=== PATIENT | male | born 1955 | race Caucasian/White ===

== ENCOUNTER 2018-06-25 11:00 | Emergency (ER) | payer BC ==
--- OUTSIDE RECORDS SUMMARY | 2018-06-25 11:21 | XMS REPORT ---
:1955 External Reference #:[id number] Author Organization [facility] Address [address] [place] [address] [place] [address] Phone [phone] Care Team Providers Name Role Phone Tommie Khalil MD Primary Care Physician Unavailable Payers Type Date Identification Numbers Payment Provider Subscriber Commercial Effective: Policy Number: BS Facets Alma Neri 2016 [id number] PayID: [id number] [address] [address] [place] [address] Problems Description No Information Social History Type Date Description Comments Occupation Retired Occupation Marketing Recruiter ETOH Use Currently consumes alcohol Smoking Patient is a former smoker quit at age 23 Exercise Type/Frequency Exercises regularly Allergies, Adverse Reactions, Alerts Date Description Reaction Status Severity Comments 09/13/2011 NKDA active Medications Medication Date Status Form Strength Qnty SIG Indications Ordering Provider Enbrel Active Soln 50mg/ml 1units inject 50 mg Z79.899 Zsofia 013 Prefill under the Cordell, Syringe skin every BUSINESS REPORTER week as directed by your physician M45.0 Simvastatin Active Tablets 20mg 90tabs 1 po qd Unknown Advair HFA Active Aerosol 115-21m 1month 2 puff bid prn Unknown cg/Act Losartan Active Tablets 100mg 90tabs 1 by mouth every Unknown Potassium day Cheratussin ac 03/08/2016 - Hx Syrup 100-10m 118ml 10 ml po hc for R0 Zsofia 08/23/2016 g/5ML 7 days for cough 5 Cordell, BUSINESS REPORTER Enbrel 01/15/2013 - Hx Solution 50mg/ml 12units 1 subcutaneously Zsofia 01/15/2013 once weekly YENY Landa Enbrel PFS 09/13/2011 - Hx Solution 50mg/ml 12units 1 subcutaneously Zsofia 08/21/2013 once weekly YENY Landa Immunizations CPT Code Status Date Vaccine Reaction Lot # [id number] Given 08/29/2017 Influenza Virus Vaccine, [id number] Quadrivalent, Split, Preservative Free [id number] Given 08/23/2016 Pneumococcal Conjugate Vaccine 13 no reaction noted [id number] Valent For Intramuscular Use 38946 Given 10/14/2014 Flu Vaccine Split Virus [id number] Preservative Free For Indiv 3Yr Older Vital Signs Date Vital Result Comment 06/05/2018 Height 67 inches 5'7" Weight 201.50 lb Heart Rate 64 /min BP Systolic Sitting 142 mmHg BP Diastolic Sitting 78 mmHg Pain Level 0 O2 % BldC Oximetry 96 % BMI (Body Mass Index) 31.6 kg/m2 01/02/2018 Height 67 inches 5'7" Weight 208.00 lb Heart Rate 74 /min BP Systolic Sitting 143 mmHg BP Diastolic Sitting 74 mmHg Respiratory Rate 15 /min Pain Level 0 BMI (Body Mass Index) 32.6 kg/m2 08/29/2017 Height 67 inches 5'7" Weight 198.00 lb w/ shoes Heart Rate 60 /min reg BP Systolic Sitting 146 mmHg Rue, reg cuff BP Diastolic Sitting 84 mmHg Rue, reg cuff Respiratory Rate 16 /min Pain Level 0 BMI (Body Mass Index) 31.0 kg/m2 04/28/2017 Height 67 inches 5'7" Weight 205.00 lb Heart Rate 80 /min BP Systolic Sitting 120 mmHg BP Diastolic Sitting 70 mmHg Respiratory Rate 14 /min Pain Level 2 BMI (Body Mass Index) 32.1 kg/m2 12/23/2016 Height 67 inches 5'7" Weight 207.00 lb Heart Rate 74 /min BP Systolic Sitting 120 mmHg BP Diastolic Sitting 68 mmHg Pain Level 1 BMI (Body Mass Index) 32.4 kg/m2 08/23/2016 Height 67 inches 5'7" Weight 203.25 lb Heart Rate 76 /min BP Systolic Sitting 110 mmHg BP Diastolic Sitting 70 mmHg Respiratory Rate 14 /min Pain Level 2 BMI (Body Mass Index) 31.8 kg/m2 03/08/2016 Height 67 inches 5'7" Weight 202.00 lb Heart Rate 74 /min BP Systolic Sitting 148 mmHg BP Diastolic Sitting 80 mmHg Pain Level 1 BMI (Body Mass Index) 31.6 kg/m2 10/12/2015 Height 67 inches 5'7" Weight 199.50 lb Heart Rate 80 /min BP Systolic Sitting 160 mmHg BP Diastolic Sitting 80 mmHg Respiratory Rate 14 /min Body Temperature 98.2 F Pain Level 2 BMI (Body Mass Index) 31.2 kg/m2 04/21/2015 Height 67 inches 5'7" Weight 208.50 lb Heart Rate 64 /min BP Systolic Sitting 132 mmHg BP Diastolic Sitting 76 mmHg BMI (Body Mass Index) 32.7 kg/m2 01/20/2015 Height 67 inches 5'7" Weight 199.00 lb Heart Rate 70 /min BP Systolic Sitting 130 mmHg BP Diastolic Sitting 84 mmHg Pain Level 1 BMI (Body Mass Index) 31.2 kg/m2 10/14/2014 Height 67 inches 5'7" Weight 195.00 lb Heart Rate 76 /min BP Systolic Sitting 134 mmHg BP Diastolic Sitting 72 mmHg Pain Level 0 BMI (Body Mass Index) 30.5 kg/m2 06/24/2014 Height 67 inches 5'7" Weight 189.00 lb Heart Rate 61 /min BP Systolic Sitting 126 mmHg BP Diastolic Sitting 70 mmHg BMI (Body Mass Index) 29.6 kg/m2 03/25/2014 Height 67 inches 5'7" Weight 206.00 lb Heart Rate 66 /min BP Systolic Sitting 128 mmHg BP Diastolic Sitting 72 mmHg BMI (Body Mass Index) 32.3 kg/m2 12/17/2013 Height 67 inches 5'7" Weight 209.00 lb Heart Rate 76 /min BP Systolic Sitting 154 mmHg BP Diastolic Sitting 88 mmHg BMI (Body Mass Index) 32.7 kg/m2 08/16/2013 Height 67 inches 5'7" Weight 198.00 lb Heart Rate 63 /min BP Systolic Sitting 132 mmHg BP Diastolic Sitting 80 mmHg BMI (Body Mass Index) 31.0 kg/m2 04/16/2013 Height 67 inches 5'7" Weight 200.00 lb Heart Rate 74 /min BP Systolic Sitting 130 mmHg BP Diastolic Sitting 76 mmHg BMI (Body Mass Index) 31.3 kg/m2 01/15/2013 Height 67 inches 5'7" Weight 200.00 lb Heart Rate 77 /min BP Systolic Sitting 120 mmHg BP Diastolic Sitting 66 mmHg BMI (Body Mass Index) 31.3 kg/m2 04/06/2012 Height 67 inches 5'7" Weight 193.00 lb Heart Rate 77 /min BP Systolic Sitting 123 mmHg BP Diastolic Sitting 77 mmHg BMI (Body Mass Index) 30.2 kg/m2 09/13/2011 Weight 190.00 lb Heart Rate 80 /min BP Systolic 110 mmHg BP Diastolic 70 mmHg Results Test Date Test Result H/L Range Note CBC Auto Diff 06/01/2018 White Blood Count 7.9 10^3/uL 3.5-10.8 Red Blood Count 4.88 10^6/uL 4.00-5.40 Hemoglobin 14.6 g/dL 14.0-18.0 Hematocrit 42 % 42-52 Mean Corpuscular Volume 87 fL 80-94 Mean Corpuscular Hemoglobin 30 pg 27-31 Mean Corpuscular HGB Conc 35 g/dL 31-36 Red Cell Distribution Width 14 % 10.5-15 Platelet Count 219 10^3/uL 150-450 Mean Platelet Volume 7.4 um3 7.4-10.4 Abs Neutrophils 5.3 10^3/uL 1.5-7.7 Abs Lymphocytes 1.8 10^3/uL 1.0-4.8 Abs Monocytes 0.5 10^3/uL 0-0.8 Abs Eosinophils 0.2 10^3/uL 0-0.6 Abs Basophils 0 10^3/uL 0-0.2 Abs Nucleated RBC 0 10^3/uL Granulocyte % 67.1 % 38-83 Lymphocyte % 22.9 % Low 25-47 Monocyte % 6.8 % 0-7 Eosinophil % 2.6 % 0-6 Basophil % 0.6 % 0-2 Nucleated Red Blood Cells % 0 Comp Metabolic Panel 06/01/2018 Sodium 137 mmol/L 135-145 Potassium 4.7 mmol/L 3.5-5.0 Chloride 105 mmol/L 101-111 Co2 Carbon Dioxide 27 mmol/L 22-32 Anion Gap 5 mmol/L 2-11 Glucose 116 mg/dL High 70-100 Blood Urea Nitrogen 22 mg/dL 6-24 Creatinine 0.80 mg/dL 0.67-1.17 BUN/Creatinine Ratio 27.5 High 8-20 Calcium 9.3 mg/dL 8.6-10.3 Total Protein 6.7 g/dL 6.4-8.9 Albumin 4.2 g/dL 3.2-5.2 Globulin 2.5 g/dL 2-4 Albumin/Globulin Ratio 1.7 1-3 Total Bilirubin 0.50 mg/dL 0.2-1.0 Alkaline Phosphatase 77 U/L 34-104 Alt 29 U/L 7-52 Ast 26 U/L 13-39 Egfr Non- 97.3 >60 Egfr 117.8 >60 1 Laboratory test finding 06/01/2018 Erythrocyte Sed Rate 22 mm/Hr High 0- 20 Carrot Allergen IgE <0.35 kU/L 2 CBC Auto Diff 08/22/2017 White Blood Count 6.6 10^3/uL 3.5-10.8 Red Blood Count 5.13 10^6/uL 4.0-5.4 Hemoglobin 15.0 g/dL 14.0-18.0 Hematocrit 44 % 42-52 Mean Corpuscular Volume 87 fL 80-94 Mean Corpuscular Hemoglobin 29 pg 27-31 Mean Corpuscular HGB Conc 34 g/dL 31-36 Red Cell Distribution Width 14 % 10.5-15 Platelet Count 232 10^3/uL 150-450 Mean Platelet Volume 8 um3 7.4-10.4 Abs Neutrophils 4.1 10^3/uL 1.5-7.7 Abs Lymphocytes 1.9 10^3/uL 1.0-4.8 Abs Monocytes 0.4 10^3/uL 0-0.8 Abs Eosinophils 0.3 10^3/uL 0-0.6 Abs Basophils 0 10^3/uL 0-0.2 Abs Nucleated RBC 0.01 10^3/uL Granulocyte % 61.5 % 38-83 Lymphocyte % 27.9 % 25-47 Monocyte % 6.2 % 1-9 Eosinophil % 3.9 % 0-6 Basophil % 0.5 % 0-2 Nucleated Red Blood Cells % 0.2 Comp Metabolic Panel 08/22/2017 Sodium 136 mmol/L 133-145 Potassium 4.3 mmol/L 3.5-5.0 Chloride 104 mmol/L 101-111 Co2 Carbon Dioxide 25 mmol/L 22-32 Anion Gap 7 mmol/L 2-11 Glucose 122 mg/dL High 70-100 Blood Urea Nitrogen 19 mg/dL 6-24 Creatinine 0.83 mg/dL 0.67-1.17 BUN/Creatinine Ratio 22.9 High 8-20 Calcium 9.4 mg/dL 8.6-10.3 Total Protein 6.9 g/dL 6.4-8.9 Albumin 4.2 g/dL 3.2-5.2 Globulin 2.7 g/dL 2-4 Albumin/Globulin Ratio 1.6 1-3 Total Bilirubin 0.60 mg/dL 0.2-1.0 Alkaline Phosphatase 54 U/L 34-104 Alt 38 U/L 7-52 Ast 34 U/L 13-39 Egfr Non- 93.6 >60 Egfr 120.3 >60 3 Laboratory test finding 08/22/2017 C Reactive Protein < 1.00 mg/L < 5.00 4 Erythrocyte Sed Rate 12 mm/Hr 0-20 5 CBC Auto Diff 04/05/2017 White Blood Count 5.4 10^3/uL 3.5-10.8 Red Blood Count 5.48 10^6/uL High 4.0-5.4 Hemoglobin 15.7 g/dL 14.0-18.0 Hematocrit 47 % 42-52 Mean Corpuscular Volume 87 fL 80-94 Mean Corpuscular Hemoglobin 29 pg 27-31 Mean Corpuscular HGB Conc 33 g/dL 31-36 Red Cell Distribution Width 14 % 10.5-15 Platelet Count 210 10^3/uL 150-450 Mean Platelet Volume 8 um3 7.4-10.4 Abs Neutrophils 2.8 10^3/uL 1.5-7.7 Abs Lymphocytes 1.8 10^3/uL 1.0-4.8 Abs Monocytes 0.5 10^3/uL 0-0.8 Abs Eosinophils 0.2 10^3/uL 0-0.6 Abs Basophils 0 10^3/uL 0-0.2 Abs Nucleated RBC 0.01 10^3/uL Granulocyte % 52.8 % 38-83 Lymphocyte % 33.4 % 25-47 Monocyte % 9.9 % High 1-9 Eosinophil % 3.3 % 0-6 Basophil % 0.6 % 0-2 Nucleated Red Blood Cells % 0.1 Comp Metabolic Panel 04/05/2017 Sodium 134 mmol/L 133-145 Potassium 4.5 mmol/L 3.5-5.0 Chloride 104 mmol/L 101-111 Co2 Carbon Dioxide 24 mmol/L 22-32 Anion Gap 6 mmol/L 2-11 Glucose 138 mg/dL High 70-100 Blood Urea Nitrogen 18 mg/dL 6-24 Creatinine 0.82 mg/dL 0.67-1.17 BUN/Creatinine Ratio 22.0 High 8-20 Calcium 9.2 mg/dL 8.6-10.3 Total Protein 7.0 g/dL 6.4-8.9 Albumin 4.5 g/dL 3.2-5.2 Globulin 2.5 g/dL 2-4 Albumin/Globulin Ratio 1.8 1-3 Total Bilirubin 0.70 mg/dL 0.2-1.0 Alkaline Phosphatase 57 U/L 34-104 Alt 30 U/L 7-52 Ast 27 U/L 13-39 Egfr Non- 94.9 >60 Egfr 122.0 >60 6 Laboratory test finding 04/05/2017 Erythrocyte Sed Rate 9 mm/Hr 0-20 7 C Reactive Protein 1.09 mg/L < 5.00 8 CBC Auto Diff 08/11/2016 White Blood Count 6.5 10^3/uL 3.5-10.8 Red Blood Count 5.32 10^6/uL 4.0-5.4 Hemoglobin 15.7 g/dL 14.0-18.0 Hematocrit 46 % 42-52 Mean Corpuscular Volume 87 fL 80-94 Mean Corpuscular Hemoglobin 30 pg 27-31 Mean Corpuscular HGB Conc 34 g/dL 31-36 Red Cell Distribution Width 13 % 10.5-15 Platelet Count 208 10^3/uL 150-450 Mean Platelet Volume 8 um3 7.4-10.4 Abs Neutrophils 4.0 10^3/uL 1.5-7.7 Abs Lymphocytes 1.8 10^3/uL 1.0-4.8 Abs Monocytes 0.5 10^3/uL 0-0.8 Abs Eosinophils 0.2 10^3/uL 0-0.6 Abs Basophils 0 10^3/uL 0-0.2 Abs Nucleated RBC 0.01 10^3/uL Granulocyte % 61.2 % 38-83 Lymphocyte % 27.5 % 25-47 Monocyte % 7.6 % 1-9 Eosinophil % 3.1 % 0-6 Basophil % 0.6 % 0-2 Nucleated Red Blood Cells % 0.1 Comp Metabolic Panel 08/11/2016 Sodium 136 mmol/L 133-145 Potassium 4.4 mmol/L 3.5-5.0 Chloride 103 mmol/L 101-111 Co2 Carbon Dioxide 26 mmol/L 22-32 Anion Gap 7 mmol/L 2-11 Glucose 144 mg/dL High 70-100 Blood Urea Nitrogen 18 mg/dL 6-24 Creatinine 0.83 mg/dL 0.67-1.17 BUN/Creatinine Ratio 21.7 High 8-20 Calcium 9.2 mg/dL 8.6-10.3 Total Protein 7.1 g/dL 6.4-8.9 Albumin 4.6 g/dL 3.2-5.2 Globulin 2.5 g/dL 2-4 Albumin/Globulin Ratio 1.8 1-3 Total Bilirubin 0.90 mg/dL 0.2-1.0 Alkaline Phosphatase 58 U/L 34-104 Alt 32 U/L 7-52 Ast 25 U/L 13-39 Egfr Non- 93.9 >60 Egfr 120.7 >60 9 Laboratory test finding 08/11/2016 Erythrocyte Sed Rate 12 mm/Hr 0-20 10 C Reactive Protein < 1.00 mg/L < 5.00 11 Comp Metabolic Panel 03/04/2016 Sodium 136 mmol/L 133-145 Potassium 3.9 mmol/L 3.5-5.0 Chloride 102 mmol/L 101-111 Co2 Carbon Dioxide 26 mmol/L 22-32 Anion Gap 8 mmol/L 2-11 Glucose 195 mg/dL High 70-100 Blood Urea Nitrogen 18 mg/dL 6-24 Creatinine 0.82 mg/dL 0.67-1.17 BUN/Creatinine Ratio 22.0 High 8-20 Calcium 9.0 mg/dL 8.6-10.3 Total Protein 6.4 g/dL 6.4-8.9 Albumin 4.3 g/dL 3.2-5.2 Globulin 2.1 g/dL 2-4 Albumin/Globulin Ratio 2.0 1-3 Total Bilirubin 0.50 mg/dL 0.2-1.0 Alkaline Phosphatase 64 U/L 34-104 Alt 30 U/L 7-52 Ast 22 U/L 13-39 Egfr Non- 95.2 >60 Egfr 122.4 >60 12 Laboratory test finding 03/04/2016 C Reactive Protein 3.97 mg/L < 5.00 13 CBC Auto Diff 03/04/2016 White Blood Count 5.7 10^3/uL 3.5-10.8 Red Blood Count 5.07 10^6/uL 4.0-5.4 Hemoglobin 15.0 g/dL 14.0-18.0 Hematocrit 44 % 42-52 Mean Corpuscular Volume 88 fL 80-94 Mean Corpuscular Hemoglobin 30 pg 27-31 Mean Corpuscular HGB Conc 34 g/dL 31-36 Red Cell Distribution Width 14 % 10.5-15 Platelet Count 212 10^3/uL 150-450 Mean Platelet Volume 8 um3 7.4-10.4 Abs Neutrophils 3.6 10^3/uL 1.5-7.7 Abs Lymphocytes 1.5 10^3/uL 1.0-4.8 Abs Monocytes 0.4 10^3/uL 0-0.8 Abs Eosinophils 0.1 10^3/uL 0-0.6 Abs Basophils 0.1 10^3/uL 0-0.2 Abs Nucleated RBC 0 10^3/uL Granulocyte % 62.7 % 38-83 Lymphocyte % 25.9 % 25-47 Monocyte % 7.2 % 1-9 Eosinophil % 2.2 % 0-6 Basophil % 2.0 % 0-2 Nucleated Red Blood Cells % 0.1 Laboratory test finding 03/04/2016 Erythrocyte Sed Rate 21 mm/Hr High 0- 20 Comp Metabolic Panel 04/16/2015 Sodium 136 mmol/L 133-145 Potassium 4.1 mmol/L 3.5-5.0 Chloride 103 mmol/L 101-111 Co2 Carbon Dioxide 26 mmol/L 22-32 Anion Gap 7 mmol/L 2-11 Glucose 140 mg/dL High 70-100 Blood Urea Nitrogen 16 mg/dL 6-24 Creatinine 0.80 mg/dL 0.67-1.17 BUN/Creatinine Ratio 20.0 8-20 Calcium 9.2 mg/dL 8.6-10.3 Total Protein 6.9 g/dL 6.4-8.9 Albumin 4.4 g/dL 3.2-5.2 Globulin 2.5 g/dL 2-4 Albumin/Globulin Ratio 1.8 1-3 Total Bilirubin 1.20 mg/dL High 0.2-1.0 Alkaline Phosphatase 64 U/L 34-104 Alt 28 U/L 7-52 Ast 30 U/L 13-39 Egfr Non- 98.3 >60 Egfr 126.4 >60 14 Laboratory test finding 04/16/2015 C Reactive Protein 4.60 mg/L < 5.00 15 CBC Auto Diff 04/16/2015 White Blood Count 7.7 10^3/uL 4.8-10.8 Red Blood Count 5.12 10^6/uL 4.0-5.4 Hemoglobin 15.1 g/dL 14.0-18.0 Hematocrit 45 % 42-52 Mean Corpuscular Volume 88 fL 80-94 Mean Corpuscular Hemoglobin 30 pg 27-31 Mean Corpuscular HGB Conc 34 g/dL 31-36 Red Cell Distribution Width 14 % 10.5-15 Platelet Count 238 10^3/uL 150-450 Mean Platelet Volume 8 um3 7.4-10.4 Abs Neutrophils 5.3 10^3/uL 1.5-7.7 Abs Lymphocytes 1.5 10^3/uL 1.0-4.8 Abs Monocytes 0.6 10^3/uL 0-0.8 Abs Eosinophils 0.3 10^3/uL 0-0.6 Abs Basophils 0 10^3/uL 0-0.2 Abs Nucleated RBC 0 10^3/uL Granulocyte % 69.2 % 38-83 Lymphocyte % 19.3 % Low 25-47 Monocyte % 7.6 % 1-9 Eosinophil % 3.4 % 0-6 Basophil % 0.5 % 0-2 Nucleated Red Blood Cells % 0 Laboratory test finding 04/16/2015 Erythrocyte Sed Rate 24 mm/Hr High 0- 20 Comp Metabolic Panel 10/08/2014 Sodium 137 mmol/L 133-145 Potassium 4.2 mmol/L 3.5-5.0 16 Chloride 105 mmol/L 101-111 Co2 Carbon Dioxide 25 mmol/L 22-32 Anion Gap 7 mmol/L 2-11 Glucose 134 mg/dL High 70-100 Blood Urea Nitrogen 22 mg/dL 6-24 Creatinine 0.81 mg/dL 0.67-1.17 BUN/Creatinine Ratio 27.2 High 8-20 Calcium 9.1 mg/dL 8.6-10.3 Total Protein 6.7 g/dL 6.4-8.9 Albumin 4.5 g/dL 3.2-5.2 Globulin 2.2 g/dL 2-4 Albumin/Globulin Ratio 2.0 1-3 Total Bilirubin 0.60 mg/dL 0.2-1.0 Alkaline Phosphatase 60 U/L 34-104 Alt 35 U/L 7-52 Ast 32 U/L 13-39 Egfr Non- 97.2 >60 Egfr 125.0 >60 17 Laboratory test finding 10/08/2014 C Reactive Protein 1.81 mg/L < 5.00 18 CBC Auto Diff 10/08/2014 White Blood Count 5.9 10^3/uL 4.8-10.8 Red Blood Count 5.18 10^6/uL 4.0-5.4 Hemoglobin 15.6 g/dL 14.0-18.0 Hematocrit 46 % 42-52 Mean Corpuscular Volume 89 fL 80-94 Mean Corpuscular Hemoglobin 30 pg 27-31 Mean Corpuscular HGB Conc 34 g/dL 31-36 Red Cell Distribution Width 14 % 10.5-15 Platelet Count 205 10^3/uL 150-450 Mean Platelet Volume 8 um3 7.4-10.4 Abs Neutrophils 3.3 10^3/uL 1.5-7.7 Abs Lymphocytes 1.8 10^3/uL 1.0-4.8 Abs Monocytes 0.5 10^3/uL 0-0.8 Abs Eosinophils 0.2 10^3/uL 0-0.6 Abs Basophils 0 10^3/uL 0-0.2 Abs Nucleated RBC 0.01 10^3/uL Granulocyte % 56.5 % 38-83 Lymphocyte % 30.4 % 25-47 Monocyte % 9.0 % 1-9 Eosinophil % 3.5 % 0-6 Basophil % 0.6 % 0-2 Nucleated Red Blood Cells % 0.1 Laboratory test finding 10/08/2014 Erythrocyte Sed Rate 16 mm/Hr 0-20 CBC Auto Diff 06/19/2014 White Blood Count 6.5 10^3/uL 4.8-10.8 Red Blood Count 4.86 10^6/uL 4.0-5.4 Hemoglobin 14.7 g/dL 14.0-18.0 Hematocrit 43 % 42-52 Mean Corpuscular Volume 88 fL 80-94 Mean Corpuscular Hemoglobin 30 pg 27-31 Mean Corpuscular HGB Conc 34 g/dL 31-36 Red Cell Distribution Width 14 % 10.5-15 Platelet Count 198 10^3/uL 150-450 Mean Platelet Volume 8 um3 7.4-10.4 Abs Neutrophils 4.2 10^3/uL 1.5-7.7 Abs Lymphocytes 1.7 10^3/uL 1.0-4.8 Abs Monocytes 0.4 10^3/uL 0-0.8 Abs Eosinophils 0.2 10^3/uL 0-0.6 Abs Basophils 0 10^3/uL 0-0.2 Abs Nucleated RBC 0 10^3/uL Granulocyte % 64.4 % 38-83 Lymphocyte % 25.3 % 25-47 Monocyte % 6.8 % 1-9 Eosinophil % 3.1 % 0-6 Basophil % 0.4 % 0-2 Nucleated Red Blood Cells % 0 Comp Metabolic Panel 06/19/2014 Sodium 136 mmol/L 133-145 Potassium 4.3 mmol/L 3.7-5.6 Chloride 103 mmol/L 101-111 Co2 Carbon Dioxide 29 mmol/L 22-32 Anion Gap 4 mmol/L 2-11 Glucose 154 mg/dL High 70-100 Blood Urea Nitrogen 18 mg/dL 6-24 Creatinine 0.78 mg/dL 0.67-1.17 BUN/Creatinine Ratio 23.1 High 8-20 Calcium 9.0 mg/dL 8.6-10.3 Total Protein 6.5 g/dL 6.4-8.9 Albumin 4.3 g/dL 3.2-5.2 Globulin 2.2 g/dL 2-4 Albumin/Globulin Ratio 2.0 1-3 Total Bilirubin 0.80 mg/dL 0.2-1.0 Alkaline Phosphatase 57 U/L 34-104 Alt 24 U/L 7-52 Ast 24 U/L 13-39 Egfr Non- 101.5 >60 Egfr 130.6 >60 19 Laboratory test finding 06/19/2014 Erythrocyte Sed Rate 12 mm/Hr 0-20 C Reactive Protein < 0.10 mg/L < 5.00 20 CMP Panel 02/21/2014 Sodium 137 mmol/L 133-145 Potassium 4.2 mmol/L 3.7-5.6 Chloride 104 mmol/L 101-111 Co2 Carbon Dioxide 26 mmol/L 22-32 Anion Gap 7 mmol/L 2-11 Glucose 129 mg/dL High 70-100 Blood Urea Nitrogen 19 mg/dL 6-24 Creatinine 0.78 mg/dL 0.67-1.17 BUN/Creatinine Ratio 24.4 High 8-20 Calcium 9.0 mg/dL 8.6-10.3 Total Protein 6.9 g/dL 6.4-8.9 Albumin 4.6 g/dL 3.2-5.2 Globulin 2.3 g/dL 2-4 Albumin/Globulin Ratio 2.0 1-3 Total Bilirubin 1.00 mg/dL 0.2-1.0 Alkaline Phosphatase 51 U/L 34-104 Alt 44 U/L 7-52 Ast 31 U/L 13-39 Egfr Non- 101.5 >60 Egfr 130.6 >60 21 Laboratory test finding 02/21/2014 C Reactive Protein 1.24 mg/L < 5.00 22 CBC W/Auto Diff 02/21/2014 White Blood Count 6.2 10^3/uL 4.8-10.8 Red Blood Count 5.34 10^6/uL 4.0-5.4 Hemoglobin 16.2 g/dL 14.0-18.0 Hematocrit 46 % 42-52 Mean Corpuscular Volume 87 fL 80-94 Mean Corpuscular Hemoglobin 30 pg 27-31 Mean Corpuscular HGB Conc 35 g/dL 31-36 Red Cell Distribution Width 14 % 10.5-15 Platelet Count 215 10^3/uL 150-450 Mean Platelet Volume 8 um3 7.4-10.4 Abs Neutrophils 3.4 10^3/uL 1.5-7.7 Abs Lymphocytes 2.0 10^3/uL 1.0-4.8 Abs Monocytes 0.4 10^3/uL 0-0.8 Abs Eosinophils 0.3 10^3/uL 0-0.6 Abs Basophils 0 10^3/uL 0-0.2 Abs Nucleated RBC 0 10^3/uL Granulocyte % 54.7 % 38-83 Lymphocyte % 33.1 % 25-47 Monocyte % 7.2 % 1-9 Eosinophil % 4.3 % 0-6 Basophil % 0.7 % 0-2 Nucleated Red Blood Cells % 0 Laboratory test finding 02/21/2014 Erythrocyte Sed Rate 11 mm/Hr 0-20 Comp Metabolic Panel 12/13/2013 Sodium 136 mmol/L 133-145 Potassium 4.2 mmol/L 3.5-5.0 Chloride 106 mmol/L 101-111 Co2 Carbon Dioxide 23.0 mmol/L 22-32 Anion Gap 7.0 mmol/L 2-11 Glucose 115 mg/dL High 70-100 Blood Urea Nitrogen 17 mg/dL 6-24 Creatinine 0.90 mg/dL 0.50-1.40 BUN/Creatinine Ratio 18.9 8-20 Calcium 9.2 mg/dL 8.1-9.9 Total Protein 6.6 g/dL 6.2-8.1 Albumin 4.3 g/dL 3.6-5.4 Globulin 2.3 g/dL 2-4 Albumin/Globulin Ratio 1.9 1-3 Total Bilirubin 0.7 mg/dL 0.4-1.5 Alkaline Phosphatase 50 U/L 30-110 Alt 34 U/L 14-54 Ast 38 U/L 12-42 Egfr Non- 86.4 >60 Egfr 111.1 >60 23 Laboratory test finding 12/13/2013 C Reactive Protein < 0.5 mg/dL Less than 0.5 CBC Auto Diff 12/13/2013 White Blood Count 6.7 10^3/uL 4.8-10.8 Red Blood Count 5.16 10^6/uL 4.0-5.4 Hemoglobin 15.8 g/dL 14.0-18.0 Hematocrit 44 % 42-52 Mean Corpuscular Volume 86 fL 80-94 Mean Corpuscular Hemoglobin 31 pg 27-31 Mean Corpuscular HGB Conc 36 g/dL 31-36 Red Cell Distribution Width 13 % 10.5-15 Platelet Count 224 10^3/uL 150-450 Mean Platelet Volume 8 um3 7.4-10.4 Abs Neutrophils 3.9 10^3/uL 1.5-7.7 Abs Lymphocytes 1.9 10^3/uL 1.0-4.8 Abs Monocytes 0.5 10^3/uL 0-0.8 Abs Eosinophils 0.3 10^3/uL 0-0.6 Abs Basophils 0 10^3/uL 0-0.2 Abs Nucleated RBC 0 10^3/uL Granulocyte % 58.0 % 38-83 Lymphocyte % 29.0 % 25-47 Monocyte % 7.9 % 1-9 Eosinophil % 4.5 % 0-6 Basophil % 0.6 % 0-2 Nucleated Red Blood Cells % 0.1 Laboratory test finding 12/13/2013 Erythrocyte Sed Rate 14 mm/Hr 0-20 Comp Metabolic Panel 08/14/2013 Sodium 139 mmol/L 133-145 Potassium 4.3 mmol/L 3.5-5.0 Chloride 108 mmol/L 101-111 Co2 Carbon Dioxide 26.0 mmol/L 22-32 Anion Gap 5.0 mmol/L 2-11 Glucose 137 mg/dL High 70-100 Blood Urea Nitrogen 19 mg/dL 6-24 Creatinine 0.80 mg/dL 0.50-1.40 BUN/Creatinine Ratio 23.8 High 8-20 Calcium 9.2 mg/dL 8.1-9.9 Total Protein 6.7 g/dL 6.2-8.1 Albumin 3.9 g/dL 3.6-5.4 Globulin 2.8 g/dL 2-4 Albumin/Globulin Ratio 1.4 1-3 Total Bilirubin 0.5 mg/dL 0.4-1.5 Alkaline Phosphatase 54 U/L 30-110 Alt 29 U/L 14-54 Ast 26 U/L 12-42 Egfr Non- 98.9 >60 Egfr 127.2 >60 24 Laboratory test finding 08/14/2013 Erythrocyte Sed Rate 15 mm/Hr 0-20 C Reactive Protein < 0.5 mg/dL Less than 0.5 CBC Auto Diff 08/14/2013 White Blood Count 6.5 10^3/uL 4.8-10.8 Red Blood Count 4.96 10^6/uL 4.0-5.4 Hemoglobin 14.3 g/dL 14.0-18.0 Hematocrit 44 % 42-52 Mean Corpuscular Volume 88 fL 80-94 Mean Corpuscular Hemoglobin 29 pg 27-31 Mean Corpuscular HGB Conc 33 g/dL 31-36 Red Cell Distribution Width 14 % 10.5-15 Platelet Count 199 10^3/uL 150-450 Mean Platelet Volume 8 um3 7.4-10.4 Abs Neutrophils 3.9 10^3/uL 1.5-7.7 Abs Lymphocytes 1.7 10^3/uL 1.0-4.8 Abs Monocytes 0.6 10^3/uL 0-0.8 Abs Eosinophils 0.3 10^3/uL 0-0.6 Abs Basophils 0 10^3/uL 0-0.2 Abs Nucleated RBC 0.01 10^3/uL Granulocyte % 59.9 % 38-83 Lymphocyte % 26.4 % 25-47 Monocyte % 8.8 % 1-9 Eosinophil % 4.3 % 0-6 Basophil % 0.6 % 0-2 Nucleated Red Blood Cells % 0.1 Comp Metabolic Panel 04/12/2013 Sodium 138 mmol/L 133-145 Potassium 4.5 mmol/L 3.5-5.0 Chloride 107 mmol/L 101-111 Co2 Carbon Dioxide 25.0 mmol/L 22-32 Anion Gap 6.0 mmol/L 2-11 Glucose 160 mg/dL High 70-100 Blood Urea Nitrogen 15 mg/dL 6-24 Creatinine 0.80 mg/dL 0.50-1.40 BUN/Creatinine Ratio 18.8 8-20 Calcium 9.0 mg/dL 8.1-9.9 Total Protein 6.4 g/dL 6.2-8.1 Albumin 4.2 g/dL 3.6-5.4 Globulin 2.2 g/dL 2-4 Albumin/Globulin Ratio 1.9 1-3 Total Bilirubin 0.6 mg/dL 0.4-1.5 Alkaline Phosphatase 53 U/L 30-110 Alt 41 U/L 14-54 Ast 25 U/L 12-42 Egfr Non- 98.9 >60 Egfr 127.2 >60 25 Laboratory test 04/12/2013 C Reactive Protein 0.6 mg/dL High Less than 0.5 finding CBC Auto Diff 04/12/2013 White Blood Count 9.3 10^3/uL 4.8-10.8 Red Blood Count 5.04 10^6/uL 4.0-5.4 Hemoglobin 14.8 g/dL 14.0-18.0 Hematocrit 44 % 42-52 Mean Corpuscular Volume 87 fL 80-94 Mean Corpuscular Hemoglobin 30 pg 27-31 Mean Corpuscular HGB Conc 34 g/dL 31-36 Red Cell Distribution Width 14 % 10.5-15 Platelet Count 205 10^3/uL 150-450 Mean Platelet Volume 8 um3 7.4-10.4 Abs Neutrophils 6.3 10^3/uL 1.5-7.7 Abs Lymphocytes 2.1 10^3/uL 1.0-4.8 Abs Monocytes 0.6 10^3/uL 0-0.8 Abs Eosinophils 0.3 10^3/uL 0-0.6 Abs Basophils 0.1 10^3/uL 0-0.2 Abs Nucleated RBC 0.01 10^3/uL Granulocyte % 67.7 % 38-83 Lymphocyte % 22.7 % Low 25-47 Monocyte % 6.2 % 1-9 Eosinophil % 2.8 % 0-6 Basophil % 0.6 % 0-2 Nucleated Red Blood Cells % 0.1 Laboratory test finding 04/12/2013 Erythrocyte Sed Rate 13 mm/Hr 0-20 Laboratory test finding 01/03/2013 Erythrocyte Sed Rate 37 mm/Hr High 0- 20 CBC Auto Diff 01/03/2013 White Blood Count 10.0 10^3/uL 4.8-10.8 Red Blood Count 4.94 10^6/uL 4.0-5.4 Hemoglobin 14.4 g/dL 14.0-18.0 Hematocrit 42 % 42-52 Mean Corpuscular Volume 85 fL 80-94 Mean Corpuscular Hemoglobin 29 pg 27-31 Mean Corpuscular HGB Conc 34 g/dL 31-36 Red Cell Distribution Width 13 % 10.5-15 Platelet Count 226 10^3/uL 150-450 Mean Platelet Volume 7 um3 Low 7.4-10.4 Abs Neutrophils 7.2 10^3/uL 1.5-7.7 Abs Lymphocytes 1.8 10^3/uL 1.0-4.8 Abs Monocytes 0.6 10^3/uL 0-0.8 Abs Eosinophils 0.3 10^3/uL 0-0.6 Abs Basophils 0 10^3/uL 0-0.2 Abs Nucleated RBC 0 10^3/uL Granulocyte % 72.2 % 38-83 Lymphocyte % 17.6 % Low 25-47 Monocyte % 6.3 % 1-9 Eosinophil % 3.4 % 0-6 Basophil % 0.5 % 0-2 Nucleated Red Blood Cells % 0 Comp Metabolic Panel 01/03/2013 Sodium 134 mmol/L 133-145 Potassium 4.1 mmol/L 3.5-5.0 Chloride 105 mmol/L 101-111 Co2 Carbon Dioxide 22.0 mmol/L 22-32 Anion Gap 7.0 mmol/L 2-11 Glucose 121 mg/dL High 70-100 Blood Urea Nitrogen 21 mg/dL 6-24 Creatinine 0.70 mg/dL 0.50-1.40 BUN/Creatinine Ratio 30.0 High 8-20 Calcium 8.8 mg/dL 8.1-9.9 Total Protein 6.1 g/dL Low 6.2-8.1 Albumin 3.8 g/dL 3.6-5.4 Globulin 2.3 g/dL 2-4 Albumin/Globulin Ratio 1.7 1-3 Total Bilirubin 0.7 mg/dL 0.4-1.5 Alkaline Phosphatase 69 U/L 30-110 Alt 41 U/L 14-54 Ast 41 U/L 12-42 Egfr Non- 115.4 >60 Egfr 148.4 >60 26 Laboratory test 01/03/2013 C Reactive Protein 1.1 mg/dL High Less than 0.5 finding Laboratory test 01/03/2013 Hepatitis C Antibody Nonreactive Nonreactive finding Laboratory test 01/03/2013 Alt 37 U/L 14-54 finding Lipid Profile 01/03/2013 Triglycerides 124 mg/dL 40-200 (Trig/Chol/HDL) Cholesterol 151 mg/dL Less than 200 HDL Cholesterol 36 mg/dL Low 40-60 27 Cholesterol/HDL Ratio 4.2 Average 1-4.44 LDL Cholesterol 90.2 mg/dL Less Than 100 28 Laboratory test finding 07/26/2012 Erythrocyte Sed Rate 10 MM/HR 0-20 C Reactive Protein < 0.5 mg/dL Less Than 0.5 CBC Auto Diff 07/26/2012 White Blood Count 7.8 CUMM 4.8-10.8 Red Cell Count 5.26 CUMM 4.6-6.2 Hemoglobin 16.1 g/dL 14.0-18.0 Hematocrit 46 % 42-52 Mean Corpuscular Volume 88 um3 80-94 Mean Corpuscular Hemoglob 31 pg 27-31 Mean Corpuscular HGB Cone 35 g/dL 32-36 Redcell Distribution WDTH 14 % 10.5-15 Platelet Count 196 CUMM 150-450 Mean Platelet Volume 7.5 um3 7.4-10.4 Gran % 59.8 % 38-83 Lymph % 28.6 % 20-45 Mononuclear % 7.2 % 1-9 Eosinophil % 4.0 % 0-6 Basophil % 0.4 % 0-2 Abs Lymphs 2.2 1.0-4.8 Abs Mononuclear 0.6 0-0.8 Absolute Neutrophil Count 4.7 1.5-7.7 Abs Eosinophils 0.3 0-0.6 Abs Basophils 0 0-0.2 Comp Metabolic Panel 07/26/2012 Sodium 136 mmol/L 135-145 Potassium 4.4 mmol/L 3.5-5.0 Chloride 104 mmol/L 101-111 Co2 (Carbon Dioxide) 25.0 mmol/L 22-32 Anion Gap 7.0 mmol/L 2-11 29 Glucose 121 mg/dL High 70-100 BUN 24 mg/dL 6-24 Creatinine 0.6 mg/dL 0.50-1.40 One Over Creatinine 1.66 BUN/Creatinine Ratio 40.0 High 8-20 Calcium 9.3 mg/dL 8.1-9.9 Total Protein 7.2 GM/DL 6.2-8.1 Albumin 4.2 GM/DL 3.6-5.4 Globulin 3.0 GM/DL 2-4 Albumin/Globulin Ratio 1.4 1-3 Bilirubin Total 0.6 mg/dL 0.4-1.5 30 Alkaline Phosphatase 52 U/L 39-117 Alt (SGPT) 39 U/L 17-63 Ast (Sgot) 36 U/L 12-42 eGFR Non- 138.4 > 60 eGFR 178.0 > 60 31 Basic Metabolic Panel 03/29/2012 Sodium 135 mmol/L 135-145 Potassium 3.7 mmol/L 3.5-5.0 Chloride 103 mmol/L 101-111 Co2 (Carbon Dioxide) 25.0 mmol/L 22-32 Anion Gap 7.0 mmol/L 2-11 32 Glucose 156 mg/dL High 70-100 BUN 16 mg/dL 6-24 Creatinine 0.8 mg/dL 0.50-1.40 One Over Creatinine 1.25 BUN/Creatinine Ratio 20.0 8-20 Calcium 8.3 mg/dL 8.1-9.9 eGFR Non- 99.3 > 60 eGFR 127.7 > 60 33 Liver Function Panel 03/29/2012 Total Protein 6.6 GM/DL 6.2-8.1 Albumin 4.1 GM/DL 3.6-5.4 Globulin 2.5 GM/DL 2-4 Albumin/Globulin Ratio 1.6 1-3 Bilirubin Total 0.6 mg/dL 0.4-1.5 34 Bilirubin Direct 0.1 mg/dL 0.1-0.5 Indirect Bilirubin 0.5 mg/dL 0.3-1.0 35 Alkaline Phosphatase 52 U/L 39-117 Alt (SGPT) 36 U/L 17-63 Ast (Sgot) 39 U/L 12-42 Laboratory test finding 03/29/2012 C Reactive Protein 0.7 mg/dL High Less Than 0.5 CBC No Diff 03/29/2012 White Blood Count 6.7 CUMM 4.8-10.8 Red Cell Count 4.94 CUMM 4.6-6.2 Hemoglobin 15.1 g/dL 14.0-18.0 Hematocrit 43 % 42-52 Mean Corpuscular Volume 87 um3 80-94 Mean Corpuscular Hemoglob 31 pg 27-31 Mean Corpuscular HGB Cone 35 g/dL 32-36 Redcell Distribution WDTH 14 % 10.5-15 Platelet Count 251 CUMM 150-450 Mean Platelet Volume 7.5 um3 7.4-10.4 Laboratory test finding 03/29/2012 Erythrocyte Sed Rate 22 MM/HR High 0- 20 1 Because ethnic data is not always readily available, this report includes an eGFR for both -Americans and non- Americans. The National Kidney Disease Education Program (NKDEP) does not endorse the use of the MDRD equation for patients that are not between the ages of 18 and 70, are , have extremes of body size, muscle mass, or nutritional status, or are non- or non-. According to the National Kidney Foundation, irrespective of diagnosis, the stage of the disease is based on the level of kidney function: Stage Description GFR(mL/min/1.73 m(2)) 1 Kidney damage with normal or decreased GFR 90 2 Kidney damage with mild decrease in GFR 60-89 3 Moderate decrease in GFR 30-59 4 Severe decrease in GFR 15-29 5 Kidney failure <15 (or dialysis) 2 Class 0 (Negative <0.35) Test Performed by: [facility] [address] [place] [address] 3 Because ethnic data is not always readily available, this report includes an eGFR for both -Americans and non- Americans. The National Kidney Disease Education Program (NKDEP) does not endorse the use of the MDRD equation for patients that are not between the ages of 18 and 70, are , have extremes of body size, muscle mass, or nutritional status, or are non- or non-. According to the National Kidney Foundation, irrespective of diagnosis, the stage of the disease is based on the level of kidney function: Stage Description GFR(mL/min/1.73 m(2)) 1 Kidney damage with normal or decreased GFR 90 2 Kidney damage with mild decrease in GFR 60-89 3 Moderate decrease in GFR 30-59 4 Severe decrease in GFR 15-29 5 Kidney failure <15 (or dialysis) 4 Acute inflammation: >10.00 5 PRN VALID 03/08/17-09/07/17 6 Because ethnic data is not always readily available, this report includes an eGFR for both -Americans and non- Americans. The National Kidney Disease Education Program (NKDEP) does not endorse the use of the MDRD equation for patients that are not between the ages of 18 and 70, are , have extremes of body size, muscle mass, or nutritional status, or are non- or non-. According to the National Kidney Foundation, irrespective of diagnosis, the stage of the disease is based on the level of kidney function: Stage Description GFR(mL/min/1.73 m(2)) 1 Kidney damage with normal or decreased GFR 90 2 Kidney damage with mild decrease in GFR 60-89 3 Moderate decrease in GFR 30-59 4 Severe decrease in GFR 15-29 5 Kidney failure <15 (or dialysis) 7 standing order 8 Acute inflammation: >10.00 9 Because ethnic data is not always readily available, this report includes an eGFR for both -Americans and non- Americans. The National Kidney Disease Education Program (NKDEP) does not endorse the use of the MDRD equation for patients that are not between the ages of 18 and 70, are , have extremes of body size, muscle mass, or nutritional status, or are non- or non-. According to the National Kidney Foundation, irrespective of diagnosis, the stage of the disease is based on the level of kidney function: Stage Description GFR(mL/min/1.73 m(2)) 1 Kidney damage with normal or decreased GFR 90 2 Kidney damage with mild decrease in GFR 60-89 3 Moderate decrease in GFR 30-59 4 Severe decrease in GFR 15-29 5 Kidney failure <15 (or dialysis) 10 PRN EXP 09/03/2016 11 Acute inflammation: >10.00 12 Because ethnic data is not always readily available, this report includes an eGFR for both -Americans and non- Americans. The National Kidney Disease Education Program (NKDEP) does not endorse the use of the MDRD equation for patients that are not between the ages of 18 and 70, are , have extremes of body size, muscle mass, or nutritional status, or are non- or non-. According to the National Kidney Foundation, irrespective of diagnosis, the stage of the disease is based on the level of kidney function: Stage Description GFR(mL/min/1.73 m(2)) 1 Kidney damage with normal or decreased GFR 90 2 Kidney damage with mild decrease in GFR 60-89 3 Moderate decrease in GFR 30-59 4 Severe decrease in GFR 15-29 5 Kidney failure <15 (or dialysis) 13 Acute inflammation: >10.00 14 Because ethnic data is not always readily available, this report includes an eGFR for both -Americans and non- Americans. The National Kidney Disease Education Program (NKDEP) does not endorse the use of the MDRD equation for patients that are not between the ages of 18 and 70, are , have extremes of body size, muscle mass, or nutritional status, or are non- or non-. According to the National Kidney Foundation, irrespective of diagnosis, the stage of the disease is based on the level of kidney function: Stage Description GFR(mL/min/1.73 m(2)) 1 Kidney damage with normal or decreased GFR 90 2 Kidney damage with mild decrease in GFR 60-89 3 Moderate decrease in GFR 30-59 4 Severe decrease in GFR 15-29 5 Kidney failure <15 (or dialysis) 15 Acute inflammation: >10.00 16 Potassium reference range changed effective 09/28/14 17 Because ethnic data is not always readily available, this report includes an eGFR for both -Americans and non- Americans. The National Kidney Disease Education Program (NKDEP) does not endorse the use of the MDRD equation for patients that are not between the ages of 18 and 70, are , have extremes of body size, muscle mass, or nutritional status, or are non- or non-. According to the National Kidney Foundation, irrespective of diagnosis, the stage of the disease is based on the level of kidney function: Stage Description GFR(mL/min/1.73 m(2)) 1 Kidney damage with normal or decreased GFR 90 2 Kidney damage with mild decrease in GFR 60-89 3 Moderate decrease in GFR 30-59 4 Severe decrease in GFR 15-29 5 Kidney failure <15 (or dialysis) 18 Acute inflammation: >10.00 19 Because ethnic data is not always readily available, this report includes an eGFR for both -Americans and non- Americans. The National Kidney Disease Education Program (NKDEP) does not endorse the use of the MDRD equation for patients that are not between the ages of 18 and 70, are , have extremes of body size, muscle mass, or nutritional status, or are non- or non-. According to the National Kidney Foundation, irrespective of diagnosis, the stage of the disease is based on the level of kidney function: Stage Description GFR(mL/min/1.73 m(2)) 1 Kidney damage with normal or decreased GFR 90 2 Kidney damage with mild decrease in GFR 60-89 3 Moderate decrease in GFR 30-59 4 Severe decrease in GFR 15-29 5 Kidney failure <15 (or dialysis) 20 Acute inflammation: >10.00 21 Because ethnic data is not always readily available, this report includes an eGFR for both -Americans and non- Americans. The National Kidney Disease Education Program (NKDEP) does not endorse the use of the MDRD equation for patients that are not between the ages of 18 and 70, are , have extremes of body size, muscle mass, or nutritional status, or are non- or non-. According to the National Kidney Foundation, irrespective of diagnosis, the stage of the disease is based on the level of kidney function: Stage Description GFR(mL/min/1.73 m(2)) 1 Kidney damage with normal or decreased GFR 90 2 Kidney damage with mild decrease in GFR 60-89 3 Moderate decrease in GFR 30-59 4 Severe decrease in GFR 15-29 5 Kidney failure <15 (or dialysis) 22 Acute inflammation: >10.00 In accordance with FDA guideline, CRP is now reported in mg/L, previous reporting was in mg/dL. 23 Because ethnic data is not always readily available, this report includes an eGFR for both -Americans and non- Americans. The National Kidney Disease Education Program (NKDEP) does not endorse the use of the MDRD equation for patients that are not between the ages of 18 and 70, are , have extremes of body size, muscle mass, or nutritional status, or are non- or non-. According to the National Kidney Foundation, irrespective of diagnosis, the stage of the disease is based on the level of kidney function: Stage Description GFR(mL/min/1.73 m(2)) 1 Kidney damage with normal or decreased GFR 90 2 Kidney damage with mild decrease in GFR 60-89 3 Moderate decrease in GFR 30-59 4 Severe decrease in GFR 15-29 5 Kidney failure <15 (or dialysis) 24 Because ethnic data is not always readily available, this report includes an eGFR for both -Americans and non- Americans. The National Kidney Disease Education Program (NKDEP) does not endorse the use of the MDRD equation for patients that are not between the ages of 18 and 70, are , have extremes of body size, muscle mass, or nutritional status, or are non- or non-. According to the National Kidney Foundation, irrespective of diagnosis, the stage of the disease is based on the level of kidney function: Stage Description GFR(mL/min/1.73 m(2)) 1 Kidney damage with normal or decreased GFR 90 2 Kidney damage with mild decrease in GFR 60-89 3 Moderate decrease in GFR 30-59 4 Severe decrease in GFR 15-29 5 Kidney failure <15 (or dialysis) 25 Because ethnic data is not always readily available, this report includes an eGFR for both -Americans and non- Americans. The National Kidney Disease Education Program (NKDEP) does not endorse the use of the MDRD equation for patients that are not between the ages of 18 and 70, are , have extremes of body size, muscle mass, or nutritional status, or are non- or non-. According to the National Kidney Foundation, irrespective of diagnosis, the stage of the disease is based on the level of kidney function: Stage Description GFR(mL/min/1.73 m(2)) 1 Kidney damage with normal or decreased GFR 90 2 Kidney damage with mild decrease in GFR 60-89 3 Moderate decrease in GFR 30-59 4 Severe decrease in GFR 15-29 5 Kidney failure <15 (or dialysis) 26 Because ethnic data is not always readily available, this report includes an eGFR for both -Americans and non- Americans. The National Kidney Disease Education Program (NKDEP) does not endorse the use of the MDRD equation for patients that are not between the ages of 18 and 70, are , have extremes of body size, muscle mass, or nutritional status, or are non- or non-. According to the National Kidney Foundation, irrespective of diagnosis, the stage of the disease is based on the level of kidney function: Stage Description GFR(mL/min/1.73 m(2)) 1 Kidney damage with normal or decreased GFR 90 2 Kidney damage with mild decrease in GFR 60-89 3 Moderate decrease in GFR 30-59 4 Severe decrease in GFR 15-29 5 Kidney failure <15 (or dialysis) 27 HDL Interpretation: Undesirable: High Risk: Less than 40 MG/DL Desirable: Low Risk: Greater than 60 MG/DL 28 LDL Interpretation: Low Risk Optimal Level: LDL Less than 100 MG/DL Near or Above Optimal: LDL 100-129 MG/DL Borderline High Risk: LDL 130-159 MG/DL High Risk: LDL 160-189 MG/DL Very High Risk: LDL Greater than 189 MG/DL 29 Anion gap measurement may be of limited value in the presence of any alkalosis, especially in a combined acid base disorder. . 30 A metabolite of Naproxen, O-desmethylnaproxen, has been shown to interfere with the Jendrassik-Brooks method for measuring total bilirubin. Samples from patients who have taken Naproxen have shown spurious elevation in total bilirubin levels. 31 Because ethnic data is not always readily available, this report includes an eGFR for both -Americans and non- Americans. The National Kidney Disease Education Program (NKDEP) does not endorse the use of the MDRD equation for patients that are not between the ages of 18 and 70, are , have extremes of body size, muscle mass, or nutritional status, or are non- or non-. According to the National Kidney Foundation, irrespective of diagnosis, the stage of the disease is based on the level of kidney function: Stage Description GFR(mL/min/1.73 m(2)) 1 Kidney damage with normal or decreased GFR 90 2 Kidney damage with mild decrease in GFR 60-89 3 Moderate decrease in GFR 30-59 4 Severe decrease in GFR 15-29 5 Kidney failure <15 (or dialysis) 32 Anion gap measurement may be of limited value in the presence of any alkalosis, especially in a combined acid base disorder. . 33 Because ethnic data is not always readily available, this report includes an eGFR for both -Americans and non- Americans. The National Kidney Disease Education Program (NKDEP) does not endorse the use of the MDRD equation for patients that are not between the ages of 18 and 70, are , have extremes of body size, muscle mass, or nutritional status, or are non- or non-. According to the National Kidney Foundation, irrespective of diagnosis, the stage of the disease is based on the level of kidney function: Stage Description GFR(mL/min/1.73 m(2)) 1 Kidney damage with normal or decreased GFR 90 2 Kidney damage with mild decrease in GFR 60-89 3 Moderate decrease in GFR 30-59 4 Severe decrease in GFR 15-29 5 Kidney failure <15 (or dialysis) 34 A metabolite of Naproxen, O-desmethylnaproxen, has been shown to interfere with the Jendrassik-Amanda method for measuring total bilirubin. Samples from patients who have taken Naproxen have shown spurious elevation in total bilirubin levels. 35 Please note updated reference range, effective 06/17/10 Procedures Description No Information Encounters Type Date Location Provider CPT E/M Dx Office Visit 01/02/2018 [facility] YENY Canut 70746 M45.0 8:30a Of [facility] Z79.899 Office Visit 08/29/2017 8:30a [facility] Of YENY Cantu 32053 M45.0 [facility] Z79.899 Z23 Office Visit 04/28/2017 8:00a [facility] Of YENY Cantu 46726 M45.0 [facility] Z79.899 Office Visit 12/23/2016 8:00a [facility] Of YENY Cantu 47073 M45.0 [facility] Z79.899 M25.551 Office Visit 08/23/2016 8:00a [facility] Of YENY Cantu 33978 M45.0 [facility] Z79.899 Z23 Office Visit 03/08/2016 8:30a [facility] Of Ashlee Landa, YENY 33756 M45.0 Framework Developer Z79.899 R05 Office Visit 10/12/2015 1:00p [facility] Ashlee Landa, BUSINESS REPORTER 11041 M45.0 Framework Developer K57.32 Z79.899 Office Visit 04/21/2015 8:30a [facility] Ashlee Landa, BUSINESS REPORTER 39335 720.0 Framework Developer V58.69 Office Visit 01/20/2015 9:00a [facility] Ashlee Landa, BUSINESS REPORTER 30718 720.0 Framework Developer V58.69 Office Visit 10/14/2014 8:30a [facility] Ashlee Landa, BUSINESS REPORTER 67230 720.0 Framework Developer V58.69 V04.81 Office Visit 06/24/2014 8:30a [facility] Ashlee Landa, BUSINESS REPORTER 16809 720.0 Framework Developer V58.69 Office Visit 03/25/2014 8:30a [facility] Ashlee Landa, BUSINESS REPORTER 83054 720.0 Framework Developer V58.69 719.47 Office Visit 12/17/2013 8:30a [facility] Of MARIALUISA CantuP 25967 720.0 Framework Developer V58.69 Office Visit 08/16/2013 8:20a [facility] Ashlee Landa, BUSINESS REPORTER 51498 720.0 Framework Developer V58.69 Office Visit 04/16/2013 8:20a [facility] Ashlee Landa, BUSINESS REPORTER 64835 720.0 Framework Developer V58.69 Office Visit 01/15/2013 8:20a [facility] Ashlee Landa, BUSINESS REPORTER 33620 720.0 Framework Developer V58.69 Office Visit 04/06/2012 1:40p [facility] Walter Rincon 65348 V58.69 Of Vasiliy Banks 720.0 Office Visit 09/13/2011 2:40p [facility] Walter Rincon M.D. 52847 720.0 Of [facility] V58.69 Plan of Care Future Appointment(s):12/11/2018 8:00 am - YENY Cantu at [facility]06/05/2018 - Ashlee Landa, FNPM45.0 Ankylosing spondylitis of multiple sites in spineComments:Well controlledWe discussed to go back with Enbrel to every week or every 10 days so that you do nothave any symptoms .Monitor for increased stiffness or any other joint pain.Follow up:6 month labs prior Call for increased symptoms or if develop [id number] Other termite helper (current) drug therapy
[2018-06-25 11:36] VITALS: BP 140/67
--- NOTE | 2018-06-25 12:05 | UC ---
Respiratory Complaint HPI - HPI Summary HPI Summary: Pt c/o URI like symptoms that began "a few days ago" and now has "traveled to my chest". Pt states he has hx of asthma and now has chest congestion - History of Current Complaint Chief Complaint: UCRespiratory Stated Complaint: CONGESTION Time Seen by Provider: 06/25/18 12:00 Hx Obtained From: Patient Onset/Duration: Gradual Onset, Lasting Days, Still Present, Worse Since - onset Timing: Constant Severity Initially: Mild Severity Currently: Moderate Pain Intensity: 0 Character: Cough: Nonproductive Aggravating Factors: Deep Breaths, Recumbent Position Associated Signs And Symptoms: Positive: Wheezing, URI, Nasal Congestion - Risk Factors Pulmonary Embolism Risk Factors: Negative Cardiac Risk Factors: Negative Pseudomonas Risk Factors: Chronic Lung Disease - asthma Tuberculosis Risk Factors: Negative - Allergies/Home Medications Allergies/Adverse Reactions: Allergies Allergy/AdvReac Type Severity Reaction Status Date / Time No Known Allergies Allergy Verified 06/25/18 11:29 Home Medications: Home Medications Aspirin EC TAB* [Ecotrin EC Low Dose 81 MG*] 1 tab DAILY 06/25/18 [History Confirmed 06/25/18] Losartan TAB* [Cozaar TAB*] 100 mg QAM 06/25/18 [History Confirmed 06/25/18] PMH/Surg Hx/FS Hx/Imm Hx Previously Healthy: Yes Endocrine History: Dyslipidemia Cardiovascular History: Hypertension - Surgical History Surgical History: Yes Surgery Procedure, Year, and Place: Gall bladder removed. Small bowel resection - Family History Known Family History: Positive: Cardiac Disease - Social History Occupation: Retired Lives: With Family Alcohol Use: Weekly Substance Use Type: None Smoking Status (MU): Former Smoker Have You Smoked in the Last Year: No Review of Systems Constitutional: Negative Skin: Negative Eyes: Negative ENT: Sinus Congestion Respiratory: Cough Cardiovascular: Negative Gastrointestinal: Negative Genitourinary: Negative Motor: Negative Neurovascular: Negative Musculoskeletal: Negative Neurological: Negative Psychological: Negative Is Patient Immunocompromised?: No All Other Systems Reviewed And Are Negative: No Physical Exam Triage Information Reviewed: Yes Appearance: Well-Appearing Vital Signs: Initial Vital Signs Temp 97.7 F 06/25/18 11:31 Pulse 63 06/25/18 11:31 Resp 18 06/25/18 11:31 BP 140/67 06/25/18 11:31 Pulse Ox 98 06/25/18 11:31 Vital Signs Reviewed: Yes Eye Exam: Normal ENT: Positive: Nasal congestion Dental Exam: Normal Neck exam: Normal Respiratory: Positive: Crackles Cardiovascular Exam: Normal Musculoskeletal Exam: Normal Neurological Exam: Normal Psychological Exam: Normal Skin Exam: Normal UC Diagnostic Evaluation - Laboratory O2 Sat by Pulse Oximetry: 98 Respiratory Course/Dx - Differential Dx/Diagnosis Differential Diagnosis/HQI/PQRI: Bronchitis, Exacerbation Of COPD Provider Diagnoses: URI. viral syndrome Discharge - Sign-Out/Discharge Documenting (check all that apply): Patient Departure - Discharge Plan Condition: Stable Disposition: HOME Prescriptions: predniSONE TAB* [Deltasone 10 MG TAB*] 30 mg PO DAILY #12 tab Patient Education Materials: Antihistamine (By mouth), Upper Respiratory Infection (DC) Referrals: Tommie Khalil MD [Primary Care Provider] - If Needed Additional Instructions: Please follow up with your PCP as needed. Additionally, please continue to use your Albuterol inhaler as directed. Plase take a long acting/one a day antihistamine daily that is Over the Counter and follow the directions on the packaging. Per institutional requirements, I have reviewed the chart, however, I was not consulted specifically or made aware of this patient by the above midlevel provider. I did not personally evaluate, interact with , or disposition this patie - Billing Disposition and Condition Condition: STABLE Disposition: Home
== END 2018-06-25 12:16 | disposition home or self-care (01) ==
LOC: UCCORT 11:00
DX: J06.9 Acute upper respiratory infection, unspecified (principal); B34.9 Viral infection, unspecified; E78.5 Hyperlipidemia, unspecified; I10 Essential (primary) hypertension; Z79.899 Other long term (current) drug therapy; Z87.891 Personal history of nicotine dependence
CPT/HCPCS: 99212; G0463